=== PATIENT | female | born 1965 | race Caucasian/White ===

== ENCOUNTER → 2016-11-24 | Outpatient (CLI) | payer MEDICAID ==
[~2016-11-24] MED LIST: CYCLOBENZAPRINE10 MG PO; GABAPENTIN 600600 MG PO; HYDROCODONE BIT1 T45 PO; HYDROCODONE/ACE1 TA5 PO; KLONOPIN1 MG PO; MELOXICAM15 MG PO; METFORMIN500 MG PO; TIZANIDINE2 MG OR
== END ==
LOC: RT 09:56
DX: R09.02 Hypoxemia (principal)

== ENCOUNTER → 2017-08-25 | Outpatient (CLI) | payer MEDICAID ==
[~2017-08-25] MED LIST changes: +CYCLOBENZ5 MG PO; +NAPROSYN 500MG500 MG PO
== END ==
LOC: DIETICIAN 13:00
DX: E11.9 Type 2 diabetes mellitus without complications (principal); Z71.3 Dietary counseling and surveillance
CPT/HCPCS: G0108